=== PATIENT | male | born 1945 | race Two or more races ===

== ENCOUNTER 2022-04-19 17:17 | Inpatient (IN) | payer MEDICARE ==
[~2022-04-19] VITALS: Ht 175.3 cm; Wt 100.9 kg
[2022-04-19 19:29] LABS: Albumin, Blood 3.5 g/dL (3.4-5.0); Albumin/Globulin Ratio 0.9 (0.8-1.8); Bilirubin, Total 0.5 mg/dL (0.1-1.0); Bun/Creatinine Ratio 18.4 (12.0-20.0); Calcium, Blood 8.8 mg/dL (8.5-10.1); Creatinine, Blood 0.92 mg/dL (0.60-1.20); Globulin, Blood 3.9 g/dL (2.2-4.0); Potassium, Blood 4.4 mmol/L (3.5-5.5); Total Protein, Blood 7.4 g/dL (6.4-8.2)
[2022-04-19 20:32] LABS: BASOPHILS ABSOLUTE AUTO 0.01 K/mm3 (0.00-0.23); BASOPHILS PERCENT AUTO 0 % (0-2); EOSINOPHILS ABSOLUTE AUTO 0.04 K/mm3 (0.00-0.68); EOSINOPHILS PERCENT AUTO 1 % (0-6); IMMATURE GRAN ABSOLUTE AUTO 0.01 K/mm3 (0.00-0.10); IMMATURE GRAN PERCENT AUTO 0 % (0-1); LYMPHOCYTES ABSOLUTE AUTO 0.93 K/mm3 (0.84-5.20); LYMPHOCYTES PERCENT AUTO 28 % (21-46); MONOCYTES ABSOLUTE AUTO 0.34 K/mm3 (0.16-1.47); MONOCYTES PERCENT AUTO 10 % (4-13); Mean Platelet Volume 9.3 fL (9.1-12.4); NEUTROPHILS ABSOLUTE AUTO 1.96 K/mm3 (1.96-9.15); NEUTROPHILS PERCENT AUTO 60 % (41-73); NRBC ABSOLUTE 0.07 K/mm3 (0.00-0.02); NRBC Auto 2.1 /100 WBC (0.0-0.2); Platelet Count 353 K/mm3 (150-400); White Blood Cell Count 3.29 K/mm3 (4.00-11.30)
[2022-04-19 20:34] LABS: Mean Corpuscular HGB Conc 24.1 g/dL (31.5-36.5); Mean Corpuscular Volume 54 fL (80-100); RDW Coefficient Variation 24.2 % (11.7-14.2); RDW Standard Deviation 45.4 fL (35.1-46.3); Red Blood Cell Count 2.08 M/mm3 (4.30-5.90)
[2022-04-19 20:36] LABS: Hematocrit 11.2 % (37.0-53.0); Hemoglobin 2.7 g/dL (13.5-17.5)
[2022-04-19 21:13] LABS: RETICULOCYTE COUNT PERCENT 1.28 % (0.50-2.50)
[2022-04-19 21:15] LABS: IMMATURE RETIC FRACTION 16.3 % (2.3-16.0); RETICULOCYTE ABSOLUTE 0.0268 M/mm3 (0.0200-0.1100)
[2022-04-19 21:26] LABS: Percent Saturation 1.7 % (20.0-50.0)
[2022-04-19 22:40] LABS: Influenza A, PCR NEGATIVE (NEGATIVE); Influenza B, PCR NEGATIVE (NEGATIVE); Resp Syncytial Virus, PCR NEGATIVE (NEGATIVE); SARS-Cov-2 (COVID-19) PCR, MMC NEGATIVE (NEGATIVE)
[2022-04-20 04:51] LABS: Free Thyroxine 0.95 ng/dL (0.70-1.60)
[2022-04-20 05:10] LABS: Thyroid Stimulating Hormone 2.21 uIU/mL (0.360-4.800)
[2022-04-20 05:55] LABS: IMMATURE RETIC FRACTION 36.3 % (2.3-16.0); RETIC HGB EQUIVALENT 14.9 pg (28.20-36.60); RETICULOCYTE ABSOLUTE 0.0077 M/mm3 (0.0200-0.1100); RETICULOCYTE COUNT PERCENT 0.3 % (0.50-2.50)
[2022-04-20 05:58] LABS: Hemoglobin 4.5 g/dL (13.5-17.5)
--- NOTE | 2022-04-20 06:45 | NUR ---
ASSUMPTION OF CARE PT ARRIVED TO PCU AT 0430, THIS RN ASSUMED CARE. REPORT RECEIVED FORM CAROLYN ED RN. PT ARRIVED ON GURNEY, PT TRANSFERRED TO PCU BED INDEPENDENTLY. PT TOLERATED WELL. PT ON RA, [id number]%. PT DENIES SOB, REPORTS BREATHING IS "MUCH IMPROVED". PT DOES NOT APPEAR TO BE SOB, NO RESPIRATORY DISTRESS NOTED. VS; BP 147/76 (89), SR HR 74, SPO2 99% ON RA, RR 16, TEMP 98.2. PT DENIES DIZZINESS OR LIGHTHEADNESS. PT DENIES N/V. DENIES MELENA. PT REPORT HX OF HEMHORRIDS. PT REPORTS DECREASED APPETITE APPROX. 2 - 3 MONTHS. MILD EDEMA NOTED IN BUE/HANDS. PT STATES THIS IS NORMAL. NO OTHER EDEMA NOTED. LS CLEAR, MILD CRACKLES IN BASES. PT ORIENTED TO ROOM, SAFTEY AND FALL PREVENTION COMPLETED.[place] AT BEDSIDE. CALL LIGHT IN REACH
--- NOTE | 2022-04-20 06:50 | NUR ---
THIS RN CALLED PROVIDER TO NOTIFY OF HGB OF 4.5 AND TO VERIFY IF 3RD UNIT OF PRBCS OKAY TO GIVE. PROVIDER CONFIRMED TO GIVE 3RD UNIT OF PRBCS AT LOWEST RATE ALLOWED. 3RD UNIT STARTED 0645. VSS; SEE TAR VITAL SIGNS. PT REMAINS STABLE AND DENIES SX. PT ABLE TO REST A LITTLE. PT ABLE TO TOLERATE LYING FLAT; PT REPORTS NOT BEING ABLE TO DO THIS "FOR A LONG TIME". WILL CONTINUE TO MONITOR AND WILL UPDATE ONCOMING RN.
--- NOTE | 2022-04-20 07:51 | NUR ---
AM NOTE... ASSUMED CARE OF PT AT 0700, THE PT IS A&Ox4 AND IND IN THE ROOM. THE PT'S VS STABLE AT THIS TIME. HE IS IN SR W/FIRST DEGREE AND OCC PVCs WITH A RATE IN THE 60'S. BP STABLE. THE PT DENIES ANY CHEST PAIN/PRESSURE OR SOB. HE IS ON RA WITH O2 SATS >90% L/S CLEAR IN THE UPPER LOBED WITH FINE CRACKLES NOTED IN THE BASES. HE HAS 1 UNIT PRBCs RUNNING AT 100MLS/HR. BT PRESENT AND HYPOACTIVE,ABD IS SOFT AND NONTENDER TO PALPATION. THE PT STATES HE FEELS "MUCH BETTER AND IM READY TO GO HOME." WILL CONTINUE TO MONITOR.
[2022-04-20 11:04] LABS: Albumin, Blood 3.1 g/dL (3.4-5.0); Bilirubin, Total 1.2 mg/dL (0.1-1.0); Bun/Creatinine Ratio 15.2 (12.0-20.0); Calcium, Blood 8.3 mg/dL (8.5-10.1); Creatinine, Blood 0.85 mg/dL (0.60-1.20); Globulin, Blood 3.1 g/dL (2.2-4.0); Potassium, Blood 3.7 mmol/L (3.5-5.5); Total Protein, Blood 6.2 g/dL (6.4-8.2)
[2022-04-20 11:29] LABS: BASOPHILS ABSOLUTE AUTO 0.05 K/mm3 (0.00-0.23); BASOPHILS PERCENT AUTO 1 % (0-2); EOSINOPHILS ABSOLUTE AUTO 0.12 K/mm3 (0.00-0.68); EOSINOPHILS PERCENT AUTO 3 % (0-6); IMMATURE GRAN ABSOLUTE AUTO 0.08 K/mm3 (0.00-0.10); IMMATURE GRAN PERCENT AUTO 2 % (0-1); LYMPHOCYTES ABSOLUTE AUTO 0.62 K/mm3 (0.84-5.20); LYMPHOCYTES PERCENT AUTO 13 % (21-46); MONOCYTES ABSOLUTE AUTO 0.49 K/mm3 (0.16-1.47); MONOCYTES PERCENT AUTO 10 % (4-13); NEUTROPHILS ABSOLUTE AUTO 3.33 K/mm3 (1.96-9.15); NEUTROPHILS PERCENT AUTO 71 % (41-73); NRBC ABSOLUTE 0.18 K/mm3 (0.00-0.02); NRBC Auto 3.8 /100 WBC (0.0-0.2); Platelet Count 277 K/mm3 (150-400); White Blood Cell Count 4.69 K/mm3 (4.00-11.30)
[2022-04-20 12:00] LABS: Mean Corpuscular HGB 19.2 pg (26.0-34.0); Mean Corpuscular HGB Conc 30.3 g/dL (31.5-36.5); Mean Corpuscular Volume 63 fL (80-100); Red Blood Cell Count 2.76 M/mm3 (4.30-5.90)
[2022-04-20 12:03] LABS: Hematocrit 17.5 % (37.0-53.0); Hemoglobin 5.3 g/dL (13.5-17.5); Mean Platelet Volume 9.2 fL (9.1-12.4)
--- NOTE | 2022-04-20 12:50 | NUR ---
Pt resting in bed and is A&OX4. Offered therapeutic listening as Pt resports events leading up to hospital stay. Pt reports being since 1965 and has 2 sons. One son lives local and the other lives in [facility]. 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 Continued therapeutic listening. Brief discussion regarding advanced directive with Pt reporting having no interest and states "I don't care for paper work and my knows my wishes". Discussed current code status and educated on life sustaining treatment including risks and implications of CPR. Pt reports wishes are full code. Ended visit to allow Pt to rest. Spoke with Primary RN Jackelin and discussed case. Palliative Care will remain available.
--- NOTE | 2022-04-20 15:05 | NUR ---
PT UPDATE.... THE PT'S HGB RECHECK AFTER HIS 3RD UNIT OF PRBCs WAS 5.3, PROVIDER NOTIFIED AND NEW ORDERS GIVEN FOR A 4TH UNIT OF PRBCs. THE PT'S VS CONTINUE TO BE STABLE. L/S CONTINUE TO HAVE CRACKLES NOTED IN THE BASES NO CHANGE FROM THIS MORNINGS ASSESSMENT. WILL CONTINUE TO MONITOR.
[2022-04-20 17:49] LABS: Hemoglobin 6.3 g/dL (13.5-17.5)
[2022-04-20 17:51] LABS: Hematocrit 21.2 % (37.0-53.0)
--- NOTE | 2022-04-20 20:32 | NUR ---
ASSUMPTION OF CARE THIS RN ASSUMED CARE OF PT AT 1900. REPORT RECEIVED FROM REGINA HERNANDEZ. PT SITTING UP IN BED IN MOYA'S POSITION, PT DOZING ON AND OFF BUT EASILY AWAKENED. PT APPEARS TO HAVE NORMAL COLORING BACK IN FACE AND SKIN. PT STATES HE "FEELS MUCH BETTER". DENIES SOB, CP OR PAIN. DENIES N/V OR LIGHTHEADNESS/DIZZINESS. VSS. PT REPORTS HE ATE "QUITE A BIT TODAY", STATES HE TOLERATED FOOD WELL. DENIES ANY NEEDS OR CONCERNS AT THIS TIME. PT DECLINE SCD'S; EDUCATION PROVIDED. PT VERBALIZES UNDERSTANDING. LUNG SOUNDS CLEAR W/MINIMAL CRACKLES IN BASES UNCHANGED FROM PREVIOUS SHIFT. CALL LIGHT IN REACH AND BED IN LOWEST POSITION.
[2022-04-21 04:14] LABS: BASOPHILS ABSOLUTE AUTO 0.06 K/mm3 (0.00-0.23); BASOPHILS PERCENT AUTO 1 % (0-2); EOSINOPHILS ABSOLUTE AUTO 0.26 K/mm3 (0.00-0.68); EOSINOPHILS PERCENT AUTO 6 % (0-6); Hematocrit 19.6 % (37.0-53.0); IMMATURE GRAN ABSOLUTE AUTO 0.02 K/mm3 (0.00-0.10); IMMATURE GRAN PERCENT AUTO 1 % (0-1); LYMPHOCYTES ABSOLUTE AUTO 0.93 K/mm3 (0.84-5.20); LYMPHOCYTES PERCENT AUTO 22 % (21-46); MONOCYTES ABSOLUTE AUTO 0.48 K/mm3 (0.16-1.47); MONOCYTES PERCENT AUTO 11 % (4-13); Mean Corpuscular HGB 20.1 pg (26.0-34.0); Mean Corpuscular HGB Conc 29.6 g/dL (31.5-36.5); Mean Corpuscular Volume 68 fL (80-100); Mean Platelet Volume 9.2 fL (9.1-12.4); NEUTROPHILS ABSOLUTE AUTO 2.55 K/mm3 (1.96-9.15); NEUTROPHILS PERCENT AUTO 59 % (41-73); NRBC ABSOLUTE 0.06 K/mm3 (0.00-0.02); NRBC Auto 1.4 /100 WBC (0.0-0.2); Platelet Count 251 K/mm3 (150-400); Red Blood Cell Count 2.88 M/mm3 (4.30-5.90)
[2022-04-21 04:17] LABS: Hemoglobin 5.8 g/dL (13.5-17.5)
[2022-04-21 04:46] LABS: Bun/Creatinine Ratio 15.5 (12.0-20.0); Calcium, Blood 8.4 mg/dL (8.5-10.1); Creatinine, Blood 0.9 mg/dL (0.60-1.20); Potassium, Blood 3.7 mmol/L (3.5-5.5)
--- NOTE | 2022-04-21 05:00 | NUR ---
SHIFT SUMMARY PT REMAINS A&O. DENIES CP, PRESSURE OR SOB. DENIES N/V, DIZZINESS OR LIGHTHEADNESS. PT RESTED WELL THROUGHOUT SHIFT. PT UP TO USE RESTROOM INDEPENDENTLY. VSS THROUGHOUT SHIFT. PT CONTINUES TO ASK ABOUT WHEN A DOCTOR WILL BE IN TO SEE HIM AND DISCHARGE PLAN. THIS RN EDUCATED ON THE PROCESS AND REMINDED PT WHEN PROVIDER WOULD BE IN TO SEE HIM AND THAT DISCHARGE PLAN IS DEPENDENT AND UP TO PROVIDER. PT VERBALIZED UNDERSTANDING BUT DOES CONTINUE TO ASK PERIODICALLY. PT NOW RESTING COMFORTABLY IN ROOM. CALL LIGHT IN REACH. WILL UPDATE ONCOMING RN
[2022-04-21 13:24] LABS: Hemoglobin 6.6 g/dL (13.5-17.5)
[2022-04-21 13:33] LABS: Hematocrit 22.1 % (37.0-53.0)
--- NOTE | 2022-04-21 13:45 | NUR ---
UPDATE REPEAT HGB AT 6.6. DR. PETERS CALLED AND NOTIFIED. ORDERS FOR 1U PRBC AND THEN RECHECK HGB. IF >7.0 PT OK TO DISCHARGE. WILL TRANSFUSE 1U PER ORDERS AND CONTINUE TO MONITOR
[2022-04-21] MEDS ORDERED: FERSU300 PO (15:11)
[2022-04-21 18:37] LABS: Hemoglobin 7.7 g/dL (13.5-17.5)
[2022-04-21 18:42] LABS: Hematocrit 25.3 % (37.0-53.0)
--- NOTE | 2022-04-21 19:10 | NUR ---
UPDATE HGB AFTER 1U PRBC IS 7.7. PER DR. PETERS, PT IS OK TO DISCHARGE. DC INSTRUCTIONS PROVIDED TO PT. PT EDUCATED ON NEW MEDICATION. BOTH IV'S REMOVED AND INTACT. ALL QUESTIONS ANSWERED. PT TAKEN OUT BY OC.
== END 2022-04-21 18:55 | disposition home or self-care (01) | DRG 812 ==
LOC: ER 17:17 → ERHOLD 17:55 → PCU 04-20 04:29
PROVIDERS: Emergency Medicine; Student in an Organized Health Care Education/Training Program; ADMIT Internal Medicine
PROC: 30233N1 Transfusion of Nonautologous Red Blood Cells into Peripheral Vein, Percutaneous Approach (ICD-10-PCS; principal; 2022-04-19)
DX: D50.9 Iron deficiency anemia, unspecified (principal); I50.32 Chronic diastolic (congestive) heart failure; I27.20 Pulmonary hypertension, unspecified; I11.0 Hypertensive heart disease with heart failure; I35.0 Nonrheumatic aortic (valve) stenosis; Z20.822 Contact with and (suspected) exposure to COVID-19; Z51.5 Encounter for palliative care; D53.9 Nutritional anemia, unspecified
CPT/HCPCS: 0241U; 36415; 36430; 71046; 80048; 80053; 82272; 82607; 82728; 82746; 83540; 83550; 83615; 83880; 84439; 84443; 84484; 85014; 85018; 85025; 85045; 85384; 86850; 86900; 86901; 86923; 93005; 93010; 93306; 96374; 99285-25; A9270; C9113; G0378; J7030; J7050; P9016

== ENCOUNTER 2024-05-28 20:34 | Inpatient (IN) | payer OTHER ==
[~2024-05-28] VITALS: Ht 172.7 cm; Wt 97.0 kg
[~2024-05-28 20:34] MED LIST: FERSU300 PO
[2024-05-28 21:36] LABS: BASOPHILS ABSOLUTE AUTO 0.06 K/mm3 (0.00-0.23); BASOPHILS PERCENT AUTO 1 % (0-2); EOSINOPHILS ABSOLUTE AUTO 0.05 K/mm3 (0.00-0.68); EOSINOPHILS PERCENT AUTO 1 % (0-6); Hematocrit 46.1 % (37.0-53.0); Hemoglobin 14.7 g/dL (13.5-17.5); IMMATURE GRAN ABSOLUTE AUTO 0.01 K/mm3 (0.00-0.10); IMMATURE GRAN PERCENT AUTO 0 % (0-1); LYMPHOCYTES ABSOLUTE AUTO 1.53 K/mm3 (0.84-5.20); LYMPHOCYTES PERCENT AUTO 26 % (21-46); MONOCYTES ABSOLUTE AUTO 0.59 K/mm3 (0.16-1.47); MONOCYTES PERCENT AUTO 10 % (4-13); Mean Corpuscular HGB 24.8 pg (26.0-34.0); Mean Corpuscular HGB Conc 31.9 g/dL (31.5-36.5); Mean Corpuscular Volume 78 fL (80-100); Mean Platelet Volume 9.5 fL (9.1-12.4); NEUTROPHILS ABSOLUTE AUTO 3.72 K/mm3 (1.96-9.15); NEUTROPHILS PERCENT AUTO 62 % (41-73); Platelet Count 341 K/mm3 (150-400); RDW Coefficient Variation 20.9 % (11.7-14.2); RDW Standard Deviation 55.8 fL (35.1-46.3); Red Blood Cell Count 5.93 M/mm3 (4.30-5.90); White Blood Cell Count 5.96 K/mm3 (4.00-11.30)
[2024-05-28 22:09] LABS: Albumin, Blood 3.1 g/dL (3.4-5.0); Albumin/Globulin Ratio 0.5 (0.8-1.8); Bilirubin, Total 0.8 mg/dL (0.1-1.0); Bun/Creatinine Ratio 30.8 (12.0-20.0); Calcium, Blood 9.6 mg/dL (8.5-10.1); Creatinine, Blood 0.84 mg/dL (0.60-1.20); Globulin, Blood 5.8 g/dL (2.2-4.0); Potassium, Blood 4.8 mmol/L (3.5-5.5); Total Protein, Blood 8.9 g/dL (6.4-8.2)
[2024-05-28] MEDS ORDERED: Aspirin 81 MG Chew PO ONE (23:15)
[2024-05-28] MEDS ORDERED: NS 500 ML IV SCH (23:20)
[2024-05-29 00:17] LABS: CORONAVIRUS COVID-19 AG Negative (NEGATIVE); INFLUENZA A AG Negative (NEGATIVE); INFLUENZA B AG Negative (NEGATIVE)
[2024-05-29] MEDS ORDERED: Acetaminophen 325 MG TABLET PO PRN (00:55)
[2024-05-29] MEDS ORDERED: FLU VACC TS2024-25(6MOS UP)/PF 45 MCG/0.5 ML SYRINGE IM ONE (00:55)
[2024-05-29] MEDS ORDERED: Ondansetron 4 MG TAB PO PRN (00:55)
[2024-05-29 01:24] LABS: Anti-Xa UFH, PHA Monitoring <0.10 IU/mL; International Normalized Ratio 1.19; Prothrombin Time Results 12.6 Sec (9.7-11.5)
[2024-05-29] MEDS ORDERED: Heparin Sodium 5000 Units/ML 1ML MDV IV ONE (01:40)
[2024-05-29] MEDS ORDERED: Heparin Sodium,Porcine/0.5 NS 500 ML IV SCH ×2 (01:40→18:15)
[2024-05-29 06:43] LABS: BASOPHILS ABSOLUTE AUTO 0.07 K/mm3 (0.00-0.23); BASOPHILS PERCENT AUTO 1 % (0-2); EOSINOPHILS ABSOLUTE AUTO 0.05 K/mm3 (0.00-0.68); EOSINOPHILS PERCENT AUTO 1 % (0-6); Hemoglobin 13.2 g/dL (13.5-17.5); IMMATURE GRAN ABSOLUTE AUTO 0.01 K/mm3 (0.00-0.10); IMMATURE GRAN PERCENT AUTO 0 % (0-1); LYMPHOCYTES ABSOLUTE AUTO 2.06 K/mm3 (0.84-5.20); LYMPHOCYTES PERCENT AUTO 34 % (21-46); MONOCYTES ABSOLUTE AUTO 0.62 K/mm3 (0.16-1.47); MONOCYTES PERCENT AUTO 10 % (4-13); Mean Corpuscular HGB 24.4 pg (26.0-34.0); Mean Corpuscular HGB Conc 30.7 g/dL (31.5-36.5); Mean Corpuscular Volume 80 fL (80-100); Mean Platelet Volume 9.6 fL (9.1-12.4); NEUTROPHILS ABSOLUTE AUTO 3.23 K/mm3 (1.96-9.15); NEUTROPHILS PERCENT AUTO 53 % (41-73); Platelet Count 304 K/mm3 (150-400); RDW Coefficient Variation 20.7 % (11.7-14.2); RDW Standard Deviation 58.1 fL (35.1-46.3); Red Blood Cell Count 5.41 M/mm3 (4.30-5.90); White Blood Cell Count 6.04 K/mm3 (4.00-11.30)
[2024-05-29 07:22] LABS: Albumin, Blood 2.8 g/dL (3.4-5.0); Albumin/Globulin Ratio 0.5 (0.8-1.8); Bilirubin, Total 0.5 mg/dL (0.1-1.0); Bun/Creatinine Ratio 29.4 (12.0-20.0); Calcium, Blood 8.8 mg/dL (8.5-10.1); Creatinine, Blood 0.88 mg/dL (0.60-1.20); Globulin, Blood 5.2 g/dL (2.2-4.0); Potassium, Blood 4.9 mmol/L (3.5-5.5)
[2024-05-29] MEDS ORDERED: Furosemide 10 MG/ML 4ML Vial IV ONE ×4 (13:00→19:00)
[2024-05-29] MEDS ORDERED: Regadenoson 0.4 MG/5 ML SYRINGE ONE (13:19)
[2024-05-29 16:09] VITALS: BP 144/93
[2024-05-29 16:22] VITALS: BP 153/96
[2024-05-29] MEDS ORDERED: Mag Sulfate 1 GM/D5% 100ML 100 ML IV STA (16:50)
--- NOTE | 2024-05-29 17:09 | NUR ---
DR. BARNETT NOTIFIED OF TELEMETRY RATE/RHYTHM OF AFLUTTER BIGEMINY WITH PVCS WITH RATE 129. NEW ORDERS FOR STAT EKG.
--- NOTE | 2024-05-29 17:27 | NUR ---
ADMIT A+O X4 ON ARRIVAL. PT ABLE TO INDEPENDENLTY AMBULATE, BUT IS SOB WITH EXERTION AND BECOMES TACHYPNIC. SPEAKS IN BROKEN SENTENCES. LUNGS WHEEZY T/O. MODERATE EDEMA NOTED IN ALL EXTREMITIES. DENIES CP/PRESSURE. REPORTS FREQUENT CONGESTED PRODUCTIVE COUGH. TELE IN PLACE--AFLUTTER/BIGEMINY WITH PVCS WITH A RATE AT 129. DR. BARNETT AWARE. STARTING IV MAG PER ORDERS NOW. AT BEDSIDE FOR SUPPORT. CALL LIGHT WITHIN REACH.
[2024-05-29] MEDS ORDERED: NS 250 ML IV PRN (17:30)
[2024-05-29] MEDS ORDERED: Furosemide 10 MG / ML 2ML Vial IV ONE (17:35)
[2024-05-29] MEDS ORDERED: Metoprolol Tartrate 25 MG Tab PO SCH (18:00)
--- NOTE | 2024-05-29 18:07 | NUR ---
NOTIFIED DR. MURILLO OF 7 BEAT RUN OF [facility]. NEW ORDERS BEING PLACED INCLUDING TRANSFER TO PCU.
[2024-05-29] MEDS ORDERED: Ipratropium/Albuterol SulF 2.5-0.5MG/3 ML Amp INH PRN (18:10)
--- NOTE | 2024-05-29 18:50 | NUR ---
TRANSFER BEDISDE REPORT RECEIVED FROM AUTOMATIC MAINTAINER. PATIENT BROUGHT TO PCU IN WHEELCHAIR. PATIENT STOOD AND PIVTOED TO RECLINER. PATIENT UNABLE TO LAY FLAT AND PREFERS TO SIT UP IN CHAIR. ALERT, ORIENTED x4, ABLE TO MAKE NEEDS KNOWN. ORIENTED TO ROOM AND CALL LIGHT SYSTEM. ENCOURAGED TO USE CALL LIGHT WHEN NEEDING TO GET UP. BP HYPERTENSIVE ON TRANSFER. TELE READING AFIB/BIGEM 100s. DENIES CHEST PAIN AT THIS TIME. JEANA METOPROLOL TO BE GIVEN PER EMAR. PATIENT DIMINISHED LUNG SOUNDS IN UPPER, DIMINISHED/COARSE IN LOWERS. REPORTS OCCASIONAL SOB. PRODUCTIVE COUGH. HEPARIN INFUSING PER EMAR. WILL REPORT TO PUBLIC SAFETY TEACHER RN.
[2024-05-29] MEDS ORDERED: Metoprolol Tartrate 1 MG/ML 5 ML VIAL IV PRN (19:00)
[2024-05-29] MEDS ORDERED: Atorvastatin 40 MG Tab PO SCH (19:00)
[2024-05-29] MEDS ORDERED: Metoprolol Tartrate 1 MG/ML 5 ML VIAL IV ONE (19:00)
[2024-05-29] MEDS ORDERED: Magnesium Sulf 2 GM/Water 50ML 50 ML IV ONE (19:05)
[2024-05-29 19:43] VITALS: BP 121/82
[2024-05-29 21:39] LABS: Bun/Creatinine Ratio 29.2 (12.0-20.0); Calcium, Blood 9.4 mg/dL (8.5-10.1); Creatinine, Blood 0.96 mg/dL (0.60-1.20); Potassium, Blood 3.7 mmol/L (3.5-5.5)
[2024-05-29] MEDS ORDERED: Potassium Chloride 40 MEQ in NS 250 ML IV ONE (23:10)
[2024-05-30 00:24] VITALS: BP 136/75
--- NOTE | 2024-05-30 01:54 | NUR ---
SHIFT SUMMARY NEURO:X4 CARDIAC: ON HEPARIN GTT. MAG AND POTASSIUM REPLACED. AFIB W/ BIGEMINY BEATS. +2 EDEMA BLE. LUNGS:CRACKLES THROUGHOUT. PT UNABLE TO SLEEP IN BED. ON RA BUT HAS TO STOP AND TAKE A BREATH WHILE DURING HIS SENTENCES WHEN SITTING. PT STATES THIS IS NORMAL TO HIM AND HE DOESN'T FEEL SHORT OF BREATH. PT REPORTS RECENT PNEUMONIA.
[2024-05-30] MEDS ORDERED: Dose Adjust by Pharmacy XX STA (02:31)
[2024-05-30 03:32] VITALS: BP 130/80
[2024-05-30 06:10] LABS: Hematocrit 46.3 % (37.0-53.0); Hemoglobin 14.4 g/dL (13.5-17.5); Mean Corpuscular HGB 24.6 pg (26.0-34.0); Mean Corpuscular HGB Conc 31.1 g/dL (31.5-36.5); Mean Corpuscular Volume 79 fL (80-100); Mean Platelet Volume 9.6 fL (9.1-12.4); Platelet Count 325 K/mm3 (150-400); RDW Coefficient Variation 21.2 % (11.7-14.2); RDW Standard Deviation 57.4 fL (35.1-46.3); Red Blood Cell Count 5.86 M/mm3 (4.30-5.90); White Blood Cell Count 5.89 K/mm3 (4.00-11.30)
[2024-05-30 06:48] LABS: Alanine Aminotransfer (ALT/SGP 70 U/L (12-78); Albumin, Blood 3.1 g/dL (3.4-5.0); Albumin/Globulin Ratio 0.6 (0.8-1.8); Alk Phos 123 U/L (50-136); Anion Gap 12 mmol/L (3-11); Aspartate Aminotrans (AST/SGOT 112 U/L (12-37); Bilirubin, Total 0.6 mg/dL (0.1-1.0); Blood Urea Nitrogen 28 mg/dL (8-24); Bun/Creatinine Ratio 31.3 (12.0-20.0); CO2, Blood 25 mmol/L (21-32); Calcium, Blood 9.6 mg/dL (8.5-10.1); Chloride, Blood 106 mmol/L (98-108); Cholesterol 116 mg/dL (50-200); Creatinine, Blood 0.89 mg/dL (0.60-1.20); Globulin, Blood 5.6 g/dL (2.2-4.0); Glomerular Filtration Rate 87 (60-); Glucose, Blood 100 mg/dL (70-99); HDL Cholesterol 39 mg/dL (>39); LDL/HDL RATIO 1.5; Low Density Lipoprotein Chol 59 mg/dL (0-110); Potassium, Blood 4.3 mmol/L (3.5-5.5); Sodium, Blood 139 mmol/L (136-145); Total Protein, Blood 8.7 g/dL (6.4-8.2); Triglycerides 91 mg/dL (30-160); Very Low Density Lipoprot Chol 18 mg/dL (6-32)
[2024-05-30 07:27] LABS: BASOPHILS ABSOLUTE MAN 0.11 K/mm3 (0.00-0.23); BASOPHILS PERCENT MAN 2 % (0-2); EOSINOPHILS ABSOLUTE MAN 0.05 K/mm3 (0.00-0.68); EOSINOPHILS PERCENT MAN 1 % (0-6); LYMPHOCYTES ABSOLUTE MAN 1.35 K/mm3 (0.84-5.20); LYMPHOCYTES PERCENT MAN 23 % (21-46); MONOCYTES ABSOLUTE MAN 0.41 K/mm3 (0.16-1.47); MONOCYTES PERCENT MAN 7 % (4-13); NEUTROPHILS ABSOLUTE MAN 3.94 K/mm3 (1.96-9.15); SEG NEUTROPHILS PERCENT MAN 67 % (41-73); TOTAL CELLS COUNTED 100
[2024-05-30 07:52] VITALS: BP 132/88
[2024-05-30] MEDS ORDERED: Metoprolol Succinate 25 MG TABCR PO SCH (08:00)
--- NOTE | 2024-05-30 08:11 | NUR ---
DR. GRECO NOTIFIED OF FREQUENT RUNS OF PVCS. NO NEW ORDERS AT THIS TIME
[2024-05-30] MEDS ORDERED: Aspirin 81 MG Chew PO SCH (09:00)
[2024-05-30] MEDS ORDERED: Furosemide 10 MG/ML 4ML Vial IV SCH (09:00)
[2024-05-30] MEDS ORDERED: PredniSONE 20 MG Tab PO SCH (11:25)
[2024-05-30 11:40] VITALS: BP 125/94
[2024-05-30] MEDS ORDERED: Sacubitril/Valsartan 24 MG-26 MG Tab PO SCH (12:00)
[2024-05-30] MEDS ORDERED: Amiodarone HCl 200 MG Tab PO SCH (13:00)
[2024-05-30 16:15] VITALS: BP 125/81
--- NOTE | 2024-05-30 17:09 | NUR ---
SHIFT NOTE: PT A/OX4 ABLE TO MAKE HIS NEEDS KNONN. HE USES THE CALL LIGHT APPROPRIATELY. HE IS IN AFLUTTER WITH FREQUENT RUNS OF PVCS, ASYMPTOMATIC. PO AMIO STARTED TODAY. HE IS ON RA WITH WHEEZING AND CRACKLES T/O LUNG ZHANG. HE HAS A PRODUCTIVE COUGH. HE IS CONT AND REQUIRES 1P SBA FOR ADLS. HE IS DISCOURAGED BEING IN THE HOSPITAL AND WANTS TO GO HOME. THIS RN THERAPUETICALLY LISTEND TO CONCERNS AND TOOK PATIENT FOR A WALK AROUND THE UNIT. HE DESIRES TO GO HOME EVEN IF HE IS NOT MEDICALLY STABLE. MD NOTIFIED. PT AGREED TO STAY THE NIGHT AND SEE THE DOC IN THE AM. HEPARIN CONTINUES TO INFUSE PER EMAR. CARE CONTINUES
[2024-05-30 19:52] VITALS: BP 110/67
[2024-05-31 00:40] VITALS: BP 130/74
[2024-05-31 03:12] LABS: BASOPHILS ABSOLUTE AUTO 0.02 K/mm3 (0.00-0.23); BASOPHILS PERCENT AUTO 0 % (0-2); EOSINOPHILS PERCENT AUTO 0 % (0-6); Hematocrit 47.2 % (37.0-53.0); Hemoglobin 14.8 g/dL (13.5-17.5); Mean Corpuscular HGB 24.7 pg (26.0-34.0); Mean Corpuscular HGB Conc 31.4 g/dL (31.5-36.5); Mean Corpuscular Volume 79 fL (80-100); Mean Platelet Volume 9.8 fL (9.1-12.4); Platelet Count 317 K/mm3 (150-400); RDW Coefficient Variation 21.4 % (11.7-14.2); RDW Standard Deviation 56.9 fL (35.1-46.3); Red Blood Cell Count 5.99 M/mm3 (4.30-5.90); White Blood Cell Count 5.29 K/mm3 (4.00-11.30)
[2024-05-31 03:20] LABS: IMMATURE GRAN ABSOLUTE AUTO 0.01 K/mm3 (0.00-0.10); IMMATURE GRAN PERCENT AUTO 0 % (0-1); LYMPHOCYTES ABSOLUTE AUTO 1.34 K/mm3 (0.84-5.20); LYMPHOCYTES PERCENT AUTO 25 % (21-46); MONOCYTES ABSOLUTE AUTO 0.42 K/mm3 (0.16-1.47); MONOCYTES PERCENT AUTO 8 % (4-13); NEUTROPHILS PERCENT AUTO 66 % (41-73)
[2024-05-31] MEDS ORDERED: Dose Adjust by Pharmacy XX STA (03:42)
[2024-05-31 03:46] LABS: Albumin, Blood 3.1 g/dL (3.4-5.0); Albumin/Globulin Ratio 0.5 (0.8-1.8); Bilirubin, Total 0.5 mg/dL (0.1-1.0); Bun/Creatinine Ratio 38.9 (12.0-20.0); Calcium, Blood 9.4 mg/dL (8.5-10.1); Creatinine, Blood 0.93 mg/dL (0.60-1.20); Globulin, Blood 5.8 g/dL (2.2-4.0); Potassium, Blood 4.2 mmol/L (3.5-5.5); Total Protein, Blood 8.9 g/dL (6.4-8.2)
[2024-05-31 04:23] VITALS: BP 133/73
[2024-05-31] MEDS ORDERED: Omeprazole 20 MG CapCR PO SCH (06:00)
[2024-05-31 08:58] VITALS: BP 121/74
[2024-05-31] MEDS ORDERED: Amiodarone HCl 200 MG Tab PO SCH (09:00)
[2024-05-31] MEDS ORDERED: Empagliflozin 10 MG TAB PO SCH (09:00)
[2024-05-31] MEDS ORDERED: Amiodarone HCl200 MG PO (10:58)
[2024-05-31] MEDS ORDERED: ACET325 PO (10:58)
[2024-05-31] MEDS ORDERED: JARDIANCE10 MG PO (10:59)
[2024-05-31] MEDS ORDERED: FURO40 PO (10:59)
[2024-05-31] MEDS ORDERED: ASPI81CH PO (10:59)
[2024-05-31] MEDS ORDERED: ATOR40TA PO (10:59)
[2024-05-31] MEDS ORDERED: PRED20 PO (11:00)
[2024-05-31] MEDS ORDERED: OMEP20ER PO (11:00)
[2024-05-31] MEDS ORDERED: IPRAT-ALBUT 0.5-3 ML INH (11:00)
[2024-05-31] MEDS ORDERED: ENTRESTO 24 MG1 EACH PO (11:01)
[2024-05-31] MEDS ORDERED: ELIQUIS5 M2 PO (11:02)
--- NOTE | 2024-05-31 12:30 | NUR ---
RX'S FAXED TO [facility], ENCOURAGED FOLLOWING UP WITH PCP. PT STATES "I NEVER GO TO THE DOCTOR". STATES HE WILL NOT FOLLOW UP, PROVIDER AWARE. REFUSES FOLLOW UP WITH CARDIOLOGY WELL.
[2024-06-04] MEDS ORDERED: Amiodarone HCl 200 MG Tab PO SCH (09:00)
== END 2024-05-31 11:40 | disposition home or self-care (01) | DRG 281 ==
LOC: ER 20:34 → ERHOLD 20:35 → ER 20:35 → PCU 20:35 → ERHOLD 20:36 → ER 05-29 00:56 → EDBEDREQ 05-29 01:51 → PCU 05-29 16:10 → SURS 05-29 16:11 → ERHOLD 05-29 16:11 → SURS 05-29 17:45 → PCU 05-29 17:45 → SURS 05-29 18:41 → PCU 05-29 18:41
PROVIDERS: Emergency Medicine; Hospitalist; Registered Nurse; Student in an Organized Health Care Education/Training Program; ADMIT Student in an Organized Health Care Education/Training Program
DX: I21.4 Non-ST elevation (NSTEMI) myocardial infarction (principal); I48.92 Unspecified atrial flutter; I50.32 Chronic diastolic (congestive) heart failure; Z66 Do not resuscitate; D64.9 Anemia, unspecified; I11.0 Hypertensive heart disease with heart failure; I35.0 Nonrheumatic aortic (valve) stenosis; I27.20 Pulmonary hypertension, unspecified; R59.1 Generalized enlarged lymph nodes; I25.10 Atherosclerotic heart disease of native coronary artery without angina pectoris; I25.5 Ischemic cardiomyopathy; E83.42 Hypomagnesemia; Z79.899 Other long term (current) drug therapy; Z79.82 Long term (current) use of aspirin; Z79.52 Long term (current) use of systemic steroids
CPT/HCPCS: 36415; 71046; 71260; 78452; 80048; 80053; 80061; 83036; 83735; 83880; 84145; 84443; 84484; 85025; 85379; 85520; 85610; 87428-QW; 93017; 93306; 94640; 94664; 94760; 94762; 99285-25; A9270; A9500; G0378; J1644; J1940; J2785; J3475; J3480; J7030; J7050; J7512; Q9967